=== PATIENT | female | born 2000 | race Asian ===

== ENCOUNTER 2021-06-23 08:58 | Emergency (ER) | payer OTHER ==
[~2021-06-23] VITALS: Ht 175.3 cm; Wt 109.0 kg
[2021-06-23] MEDS ORDERED: ONDANSETRON HCL 4MG/2ML INJ IV STA (10:03)
[2021-06-23] MEDS ORDERED: KETOROLAC 15MG/ML VIAL IV ONE (10:15)
[2021-06-23] MEDS ORDERED: SODIUM CHLORIDE 0.9% 1,000 ML IV ONE (10:15)
[2021-06-23 10:26] LABS: CLARITY URINE CLOUDY (CLEAR); COLOR URINE DARK YELLOW (YELLOW); KETONES URINE 1+ (NEGATIVE); LEUKOCYTE ESTERASE URINE 1+ (NEGATIVE); NITRITE URINE NEGATIVE (NEGATIVE); OCCULT BLOOD URINE NEGATIVE (NEGATIVE); PROTEIN URINE 1+ (NEGATIVE); SPECIFIC GRAVITY URINE 1.027 (1.005-1.030)
[2021-06-23 10:40] LABS: HEMATOCRIT. 40.7 % (36.0-48.0); HEMOGLOBIN. 13.2 g/dL (12.0-16.0); MEAN CORPUSCULAR HEMOGLOBIN 26.2 pg (28.0-32.0); MEAN CORPUSCULAR VOLUME 81.1 fL (81.0-99.0); MEAN PLATELET VOLUME 7.7 fl (7.4-10.4); PLATELET 207 x1000/uL (130-400); RED BLOOD CELL COUNT 5.02 mill/uL (4.2-5.4); RED CELL DISTRIBUTION WIDTH 12.9 % (11.6-14.6)
[2021-06-23 10:42] LABS: CHLORIDE 107 mEq/L (98-107)
[2021-06-23 10:48] LABS: UCG SCREEN NEGATIVE
[2021-06-23 11:45] LABS: PLATELET ESTIMATE NORMAL
[2021-06-23] MEDS ORDERED: CEFTRIAXONE 1 G PREMIX 50 ML IV ONE (12:00)
[2021-06-23] MEDS ORDERED: IOHEXOL-300 100 ML BOTTLE ONE (14:50)
[2021-06-23] MEDS ORDERED: CIPR-263 MT (15:13)
[2021-06-23 15:56] VITALS: BP 135/65
== END 2021-06-23 15:49 | disposition home or self-care (01) ==
LOC: ER 08:58
DX: N10 Acute pyelonephritis (principal)
CPT/HCPCS: 36415; 74177; 80053; 81003; 81025; 83690; 85025; 87086; 96361; 96365; 96375; 99285; J0696; J1885; J2405; J7030; Q9967